=== PATIENT | female | born 1965 | race Caucasian/White ===

== ENCOUNTER 2016-06-12 12:01 | Inpatient (IN) | payer BC ==
[2016-06-12] MEDS: NORMAL SALINE 10 ML SYRINGE FLUSH IVP PRN ×2 (12:25→15:56)
[2016-06-12 12:32] LABS: BASOPHILS # (AUTO) 0.05 10*3/UL; BASOPHILS % (AUTO) 0.3 % (0-1); EOSINOPHILS % (AUTO) 0.3 % (0-8); HEMOGLOBIN 13.7 g/dL (12.0-16.0); IMM GRAN % (AUTO) 0.2 % (0-5); IMM GRAN# (AUTO) 0.03 10*3/UL; LYMPHOCYTES % (AUTO) 16.7 % (10-50); MEAN CORPUSCULAR HGB CONC 34.3 g/dL (33-37); MEAN PLATELET VOLUME 8.9 FL (7.4-12.2); MONOCYTES # (AUTO) 0.79 10*3/UL (0.3-0.8); MONOCYTES % (AUTO) 5.3 % (5-15); NEUTROPHILS # (AUTO) 11.53 10*3/UL; NEUTROPHILS % (AUTO) 77.2 % (50-80); RDW COEFFICIENT OF VARIATION 13.1 % (11.5-14.5); RED BLOOD COUNT 4.73 10^6/uL (4.20-5.40); WHITE BLOOD COUNT 14.94 10^3/uL (4.8-10.8)
[2016-06-12 12:34] LABS: PLATELET MORPHOLOGY COMMENT NORMAL MORPHOLOGY (NORM)
--- NOTE | 2016-06-12 12:39 | EKG ---
[address] [address] Measurements Intervals [place] Rate: 107 P: 58 SC: 140 QRS: 30 QRSD: 98 T: 53 QT: 327 QTc: 389 Interpretive Statements SINUS TACHYCARDIA ABNORMAL RHYTHM ECG No previous ECG available for comparison Electronically Signed On 06-12-16 15:34:58 MST by Isiah Sotomayor MD [email or web address]
[2016-06-12 12:45] LABS: AMYLASE 44 U/L (30-110)
[2016-06-12 12:48] LABS: BILIRUBIN,TOTAL 0.4 mg/dL (0.3-1.2); C-REACTIVE PROTEIN 8.1 mg/dL (0.0-0.9); CALCIUM 8.9 mg/dL (8.7-10.7); TOTAL PROTEIN 6.8 g/dL (6.1-8.0)
--- NOTE | 2016-06-12 13:16 | DI ---
PA /LATERAL CHEST X-RAY, 06/12/2016 12:11 PM : Clinical History: Left-sided pleuritic chest pain. Previous Exam: None at this facility. There is no acute soft tissue or bony abnormality. Heart size is normal. There is no acute infiltrate or effusion. Discoid atelectasis is present in the right middle lobe. Mediastinal structures are nor mal. There are no pulmonary nodules. Reading: Normal chest x-ray.
[2016-06-12 13:53] LABS: BILIRUBIN,URINE NEGATIVE (NEG); CLARITY,URINE CLEAR (CLEAR); GLUCOSE, URINE (UA) NEGATIVE (NEG); LEUKOCYTE ESTERASE ,URINE NEGATIVE (NEG); NITRATE,URINE NEGATIVE (NEG); OCCULT BLOOD,URINE MODERATE (NEG); PROTEIN,URINE NEGATIVE (NEG); UROBILINOGEN,URINE 0.2 EU/dL (0.2)
[2016-06-12 13:55] LABS: URINE SAMPLE TYPE CLEAN CATCH URINE
[2016-06-12 14:07] LABS: SQUAMOUS EPITHELIAL CELL,UR RARE; WBC,URINE 0
--- NOTE | 2016-06-12 14:10 | PDOC ---
General Adult HPI - General Chief Complaint: Abdomen Pain Stated Complaint: L ABD PAIN Date Seen by Provider: 06/12/16 Time Seen by Provider: 12:05 Source: POSITIVE: Patient Exam Limitations: POSITIVE: No limitations Nurse's Notes Reviewed & Considered: Yes - History of Present Illness Initial Comment: The patient is a 50-year-old female who presents to the emergency department with left-sided chest and abdominal pain. She states that last night she had onset of pain in her left chest/left upper abdomen. She states that she felt a lot of pressure as well as increase sharp pain with breathing. She felt like it was difficult to take a deep breath because of pain. Initially last night her pain was across mostly her left chest and even some to the right side of her chest. Now the pain seems more localized to the left anterior lower rib area. She has some degree of pain that is constant however the pain does intensify and become more sharp with breathing. She denies any fevers or chills , nausea or vomiting, urinary symptoms, pain or swelling in her extremities. She denies any prior history of heart disease or blood clots. She does have a history of reflux symptoms however she states this feels different. She denies any history of smoking. She does take oral control pills. She reports a history of hypertension and is on depression medication. The patient is here working in [employer] this week and normally lives in [facility]. Have you received a tetanus shot in the past 10 years?: Unknown - Patient Home Medications Home Medications: Home Medications Control Pill 1 tab PO DAILY 06/12/16 Losartan [Cozaar] 25 mg PO DAILY 06/12/16 Venlafaxine HCl [Effexor] 50 mg PO DAILY 06/12/16 - Patient Allergies Allergies/Adverse Reactions: Allergies Allergy/AdvReac Type Severity Reaction Status Date / Time No Known Allergies Allergy Verified 06/12/16 12:04 Past Medical History - heen HEENT History: Denies History Cardiovascular History: Hypertension Respiratory History: Denies History Gastrointestinal History: Denies History Genitourinary History: Kidney Stones Endocrine History: Denies History Musculoskeletal History: Denies History Prosthesis or Implant: No Neurological History: Migraines Blood Disorders: Denies History Psychiatric History: Depression History of Sexually Transmitted Diseases: No Female Reproductive History: Denies History LMP: 05/20/2016 Cancer History: Denies History In Past Year Been Physically Harmed or Verbally Threatened: No (PER PATIENT) History of MDRO: No History of Other Communicable Diseases: No Tobacco Use: Never Smoker Alcohol Use: Rarely Substance Use Type: None Previous Surgical History: Yes Type / Date of Surgery: BILATERAL CARPAL TUNNEL RELEASE Anesthesia Reactions: No Malignant Hyperthermia: No Family History of Malignant Hyperthermia: No Significant Family History: No pertinent family hx Past Medical History Reviewed: Reviewed - No Changes ROS - Limitations ROS Limitations: No Limitations Constitution: DENIES: Chills, Fever Cardiovascular: DENIES: Heart Racing, Heart Palpitations, Edema Respiratory: REPORTS: Hurts To Breathe, Shortness Of Breath. DENIES: Cough Non Productive, Cough Productive Neurological: REPORTS: Denies Neuro Symptoms Gastrointestinal: DENIES: Nausea, Vomitting, Diarrhea, Black Stools, Bloody Stools Endocrine: REPORTS: Denies Symptoms Musculoskeletal: DENIES: Calf Pain, Lower Extremity Swelling Genitourinary: REPORTS: Denies Symptoms. DENIES: Flank Pain Eyes: REPORTS: Denies Symptoms ENT: REPORTS: Denies Symptoms Skin: DENIES: Rash General Adult Exam - General Appearance General Appearance: POSITIVE: Alert, Cooperative, No Acute Distress - HEENT HEENT: POSITIVE: Head Inspection Nml, Eyes Inspection Nml, Ears Inspection Nml, Pharynx Inspect. Nml, PERRL, EOMI - Neck Neck: POSITIVE: Normal Inspection. NEGATIVE: Lymphadenopathy - Respiratory Respiratory: POSITIVE: No Respiratory Distress, Breath Sounds Normal, Chest Non- Tender - Cardiovascular Cardiovascular: POSITIVE: Regular Rate & Rhythm, No Murmur Peripheral Pulses: Dorsalis-pedis (R): 2+, Dorsalis-pedis (L): 2+ - Abdomen Abdomen: Soft: (All Quadrants), Denies Tenderness: (All Quadrants), No Distention: (All Quadrants) - Back Back: NEGATIVE: CVA Tenderness - Skin Skin: POSITIVE: Normal Color, No Rash - Extremities Extremity: Normal ROM: (All Extremities), Normal Inspection: (All Extremities) - Neurological / Psychological Neurological: POSITIVE: Other (No focal neurologic deficits) General Adult Progress - Results Reviewed by me Xrays/CTs/US Reviewed by me: Yes Discussed with Radiologist: Yes Radiology Findings: Chest x-ray is normal per radiologist. CT scan of the chest PE protocol reveals a pulmonary embolus with small associated infarction in the left lower lobe per radiologist. CT scan of the abdomen and pelvis was unremarkable per radiologist. Lab Results Reviewed: Yes Lab Results:: Laboratory Results 06/12/16 06/12/16 Range/Units 12:28 13:11 WBC 14.94 H (4.8-10.8) 10^3/uL RBC 4.73 (4.20-5.40) 10^6/uL Hgb 13.7 (12.0-16.0) g/dL Hct 40.0 (37.0-47.0) % MCV 84.6 (81-99) FL MCH 29.0 (27-31) PG MCHC 34.3 (33-37) g/dL RDW Std Deviation 39.9 (39-50) fL RDW Coeff of Andrew 13.1 (11.5-14.5) % Plt Count 384 H (140-350) 10*3/uL MPV 8.9 (7.4-12.2) FL Immature Gran % (Auto) 0.2 (0-5) % Neut % (Auto) 77.2 (50-80) % Lymph % (Auto) 16.7 (10-50) % Sheridan % (Auto) 5.3 (5-15) % Eos % (Auto) 0.3 (0-8) % Baso % (Auto) 0.3 (0-1) % Immature Gran # (Auto) 0.03 10*3/UL Neut # (Auto) 11.53 10*3/UL Lymph # (Auto) 2.50 10*3/uL Sheridan # (Auto) 0.79 (0.3-0.8) 10*3/UL Eos # (Auto) 0.04 10*3/UL Baso # (Auto) 0.05 10*3/UL WBC Morphology Comment Normal morphology (NORM) Plt Morphology Comment Normal morphology (NORM) RBC Morph Comment Normal morphology (NORM) D-Dimer 1.78 H (0.00-0.59) mg/L Sodium 136 (135-145) meq/L Potassium 4.0 (3.8-5.2) meq/L Chloride 100 (98-112) meq/L Carbon Dioxide 25 (23-33) meq/L Anion Gap 11 (5-20) BUN 13 (7-22) mg/dL Creatinine 1.0 (0.50-1.20) mg/dL Estimated GFR 59 (>60 ml/min/1.73m(2)) BUN/Creatinine Ratio 13.00 (6-20) Glucose 130 H (78-110) mg/dL Calculated Osmolality 283.0 (267-292) mOsm/kg Calcium 8.9 (8.7-10.7) mg/dL Total Bilirubin 0.4 (0.3-1.2) mg/dL AST 19 (8-39) IU/L ALT 24 (9-52) IU/L Alkaline Phosphatase 79 (38-126) IU/L Troponin I < 0.012 (< 0.040) ng/mL C-Reactive Protein 8.1 H (0.0-0.9) mg/dL Total Protein 6.8 (6.1-8.0) g/dL Albumin 3.9 (3.5-4.8) g/dL Globulin 2.9 (2.50-4.10) g/dL Albumin/Globulin Ratio 1.30 (1.3-2.0) mg/g Amylase 44 (30-110) U/L Lipase 73 (23-300) IU/L Ur Collection Type Clean catch urine Urine Color Yellow Urine Clarity Clear (CLEAR) Urine pH 6.0 (5.0-8.5) Ur Specific [place] 1.015 (1.005-1.030) Urine Protein Negative (NEG) mg/dl Urine Glucose (UA) Negative (NEG) mg/dL Urine Ketones Negative (NEG) Urine Occult Blood Moderate H (NEG) Urine Nitrate Negative (NEG) Urine Bilirubin Negative (NEG) Urine Urobilinogen 0.2 (0.2) EU/dL Ur Leukocyte Esterase Negative (NEG) Urine RBC 8-10 (NONE) /hpf Urine WBC 0 (NONE) Ur Squamous Epith Cells Rare (NONE) Ur Renal Epithelial Cell None (NONE) Urine Crystals None Urine Bacteria None (NONE) Urine Casts None (NONE) Urine Mucus Few (NONE) Urine Trichomonas None (NONE) Urine Yeast None (NONE) Ur Culture Indicated? Culture not set EKG Interpreted/Reviewed By Me:: Yes EKG Interpretation:: POSITIVE: Normal Sinus Rhythm, Normal Intervals, Normal [place], Normal QRS, Normal ST/T, Other (Sinus tachycardia) - Patient's Progress MDM / ED Course: Initial EKG showed normal sinus rhythm with no acute changes. Blood work was significant for an elevated d-dimer and elevated white count. Subsequently a CT scan PE protocol reveals evidence of PE in the left lower lobe with associated mild pulmonary infarct per radiologist. CT scan of the abdomen and pelvis had also been done secondary to the elevated white count and was unremarkable. These findings were discussed with the patient. The patient is hemodynamically stable. Treatment options including traditional treatment with heparin/Lovenox and Coumadin versus newer anticoagulants discussed. Risks also discussed. Patient elected to start eliquis. I did discuss the patient with Dr. Lyons. The patient will be admitted for further monitoring and treatment. Venous Doppler of the lower extremity bilateral was ordered and was also negative. - Consult Counseled: POSITIVE: Patient, RE: Lab Results, RE: Radiology Results, RE: DX Patient Care Time - Estimated PCT Patient Care Time (In Minutes): 50 Vital Signs - Recent Vital Signs Vital Signs: Vital Signs (Last 8 hours) Temp Pulse Pulse Resp BP Pulse Ox 06/12/16 12:37 107 H 06/12/16 12:01 99.4 F 103 H 17 132/75 96 - VS Reviewed Vital Signs Reviewed: Yes Discharge Clinical Impression: Pulmonary embolism Discharge Disposition: Admit to Inpatient Condition: Stable Date Decision to Admit to Inpatient: 06/12/16 Time Decision to Admit to Inpatient: 15:05
[2016-06-12] MEDS ORDERED: Apixaban 5 MG TABLET PO ONE (15:08)
--- NOTE | 2016-06-12 15:10 | DI ---
CT ABDOMEN SCAN WITH IV CONTRAST, 06/12/2016 1:08 PM : Clinical History: Left-sided abdominal pain. Elevated white count. Previous Exam: None at this facility. Scans are performed from the lower lung bases through the liver and kidneys with IV contrast. This is the same bolus of contrast used for the CTA chest scan. There is a small left pleural effusion. The liver has a normal appearance on this study but on the CT angiogram of the chest, the liver show diffuse low density consistent with mild fatty infiltration. The gallbladder is grossly normal. There is no abnormality of the spleen, pancreas, and adrenal gland s. Both kidneys are normal in size, shape, position and contour. There is no hydronephrosis or hydrou reter. No renal or ureteral calculi are present. There are no abnormal retrocrural or periaortic node s. No ascites is present. READING: Fatty infiltration of the liver. The exam is otherwise normal. CT PELVIS SCAN WITH IV CONTRAST, 06/12/2016 1:08 PM: Clinical History: See above. Previous Exam: None at this facility. Scans are performed from just superior to the umbilicus to the symphysis pubis with IV contrast. This is the same bolus of contrast used for the CT scans of the chest and abdomen. Scans through the lower abdomen and pelvis show no masses or abnormal fluid collections. There is no adenopathy. The appendix is normal. The small bowel, terminal ileum, and ileocecal valve are normal. The colon is also normal. There are no hernias. The uterus and both ovaries are normal. READING: Normal CT scan of the pelvis.
--- NOTE | 2016-06-12 15:14 | DI ---
CT ANGIOGRAM OF THE CHEST, 06/12/2016 1:06 PM : Clinical History: Left pleuritic chest pain. Elevated D-dimer test. Previous Exam: None at this facility. Scans are performed from the base of the neck to the lower lung bases following IV administration of 95 mL of Isovue 300 followed by a bolus of 50 mL of normal saline. Proprietary automated bolus tracki ng software was used to verify the timing of the injection. The base of the neck and thoracic inlet are normal. There are no abnormal axillary, supraclavicular, mediastinal, or hilar nodes. The heart is normal. There is no pulmonary arterial hypertension. Fillin g defects are present bilaterally in lower lobe branches indicating pulmonary emboli. Clots are also visualized in the left and right upper lobe branches. There is a small left pleural effusion with a p leural-based defect in the posterior sulcus corresponding to the posterior basal segment consistent w ith a small pulmonary infarct. There are no pulmonary nodules. There is fatty infiltration of the rekha er. READIN. Bilateral pulmonary emboli are present mainly in both lower lobes and to a lesser degree in both upper lobes. There is a small pulmonary infarct in the posterobasal segment of the left lower lobe wi th a small pleural effusion. 2. Fatty infiltration of the liver.
[2016-06-12] MEDS ORDERED: KETOROLAC 15 MG/1 ML VIAL IVP ONE (15:47)
--- NOTE | 2016-06-12 16:05 | DI ---
VENOUS DOPPLER ULTRASOUND OF BOTH LOWER EXTREMITIES, 06/12/2016 3:05 PM: Clinical History: Pulmonary embolism. Previous Exam: None at this facility. Technique: 2D real-time imaging is supplemented with color Doppler ultrasound. Compression and augmen tation maneuvers were performed. The deep venous system from the groin to the popliteal fossa for both legs is normal. The greater sap henous veins are also normal. Reading: Negative venous Doppler ultrasound of both lower extremities for deep vein thrombosis.
[2016-06-12] MEDS ORDERED: NORMAL SALINE 10 ML SYRINGE FLUSH IVP PRN (16:07)
[2016-06-12] MEDS ORDERED: LIDOCAINE W/ SODIUM BICARB 0.5 ML SYR SUBD PRN (16:07)
[2016-06-12] MEDS ORDERED: ONDANSETRON 4 MG/2 ML VIAL IVP PRN (16:07)
[2016-06-12] MEDS ORDERED: oxyCODONE-ACETAMINOPHEN 5-325 TAB PO PRN (16:39)
--- NOTE | 2016-06-12 16:49 | PDOC ---
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 In the ER she received a dose of Toradol will help with her pain on deep inspiration and also CT scan of the chest revealed bilateral pulmonary emboli both upper and lower lobes troponins were negative and bilateral lower ultrasounds were also negative. Denies any prior history of coronary artery disease does have a history of reflux disease for she takes an occasional Zantac for she also takes Effexor for for her depression and Cozaar for hypertension At present she is denying chest pain and is feeling much comfortable Past Medical History Medical History: Hypertension, depression, on control pills Tobacco Use: Never Smoker Substance Use Type: None Alcohol Use: None Medication / Allergies Home Medications: Home Medications Medication Instructions Recorded Confirmed Type Control Pill 1 tab PO DAILY 06/12/16 06/12/16 History Losartan [Cozaar] 25 mg PO DAILY 06/12/16 06/12/16 History Venlafaxine HCl [Effexor] 50 mg PO DAILY 06/12/16 06/12/16 History Allergies/Adverse Reactions: Allergies Allergy/AdvReac Type Severity Reaction Status Date / Time No Known Allergies Allergy Verified 06/12/16 12:04 Review of Systems - Review of Systems All Systems: Reviewed & No Additional Complaints Except as Stated - Respiratory Respiratory: DENIES: Negative System Review, Cough, Sputum, Dyspnea At Rest, Dyspnea with Exertion, Pleuritic Pain, Hemoptysis, Wheezing, Other, See HPI - Cardiovascular Cardiovascular: DENIES: Negative System Review, Chest Pain, Edema, Syncope, Palpitations, Orthopnea, Paroxysmal Nocturnal Dyspnea, Other, See HPI - Gastrointestinal Gastrointestinal / Abdominal: DENIES: Negative System Review, Nausea, Vomiting, Diarrhea, Constipation, Abdominal Pain, Bloody Stool, Poor Appetite, Heartburn, Regurgitation, Bloating, Lactose Intolerance, Melena, Bright Red Blood Per Rectum, Other, See HPI - Genitourinary Genitourinary: DENIES: Negative System Review, Pain, Burning, Hematuria, Incontinence, Urgency, Hesitant Stream, Decreased Stream, Nocutria, Discharge, Sexual Dyfunction, Other, See HPI - Musculoskeletal Musculoskeletal: DENIES: Negative System Review, Back Pain, Neck Pain, Swelling , Calf Pain, Muscle Pain, Cramping, Joint Pain - Hands, Joint Pain - Elbows, Joint Pain - Shoulders, Joint Pain - Hips, Joint Pain - Knees, Joint Pain - Feet , AM Stiffness, Other, See HPI Exam - Vitals Vital Signs: Vital Signs Temperature 98.4 F Temperature Source Temporal Artery Scan Pulse Rate [Pulse Oximeter] 105 Respiratory Rate 18 Blood Pressure [Left Arm] 150/87 Pulse Ox 96 Oxygen Delivery Method Room Air Height 5 ft 7 in Weight 114.895 kg - General General Appearance: POSITIVE: No Acute Distress, Cooperative - Head Head Exam: POSITIVE: Normal Inspection, Normocephalic, Atraumatic - Eye Eye Exam: POSITIVE: Normal Appearance, PERRL, EOMI - Respiratory Respiratory Exam: POSITIVE: Clear to Auscultation - Bilaterally, Breathing Non Labored, Normal To Percussion, Rales - Cardiovascular Cardiovascular Exam: POSITIVE: RRR, No Murmur, No Clicks, No Gallops, No Rubs - GI/Abdominal GI/Abdominal Exam: POSITIVE: Normal Bowel Sounds, Non Tender, Non Distended, Soft - Extremities Extremities Exam: POSITIVE: Normal Capillary Refill, No Clubbing Present, No Edema Present, No Cyanosis Present Results - Labs CBC and BMP: 06/12/16 12:28 06/12/16 12:28 Assessment and Plan - Patient Problems (1) Pulmonary embolus Current Visit: Yes Status: Acute Comment: We will start Eliquis 10 mg by mouth twice a day I recommended the patient stop her control pills and go to another form after she follows up with her primary care physician we are not doing an echo there is no blood pressure issues or troponin leaks and the other reason why is because we don't have master motorcycle technician that can do echoes this week at our facility. Patient understands (2) Hypertension Current Visit: Yes Status: Acute Comment: Continue losartan will start tomorrow she really had her dose today (3) Depression Current Visit: Yes Status: Chronic Comment: Continue her Effexor
[2016-06-12] MEDS: Sodium Chloride 0.9% 1,000 ML PRIMARY IV SCH (17:00)
[2016-06-12] MEDS ORDERED: VENLAFAXINE XR 75 MG CAP PO SCH (21:00)
[2016-06-12] MEDS ORDERED: Apixaban 5 MG TABLET PO SCH (21:00)
[2016-06-13] MEDS: Sodium Chloride 0.9% 1,000 ML PRIMARY IV SCH (00:35)
[2016-06-13 06:44] LABS: ASPARTATE AMINO TRANSFERASE 18 IU/L (8-39); BILIRUBIN,TOTAL 0.5 mg/dL (0.3-1.2); BLOOD UREA NITROGEN 12 mg/dL (7-22); CALCIUM 8.6 mg/dL (8.7-10.7); CHLORIDE 108 meq/L (98-112); CREATININE 0.8 mg/dL (0.50-1.20); EST GLOMERULAR FILTRATION > 60 (>60 ml/min/1.73m(2)); GLUCOSE 93 mg/dL (78-110); SODIUM 139 meq/L (135-145); TOTAL PROTEIN 6.8 g/dL (6.1-8.0)
[2016-06-13] MEDS ORDERED: LOSARTAN 25 MG TABLET PO SCH (07:00)
[2016-06-13 08:11] VITALS: RESP 16; TEMP 97.2
[2016-06-13] MEDS ORDERED: Apixaban 5 MG TABLET PO SCH (09:00)
[2016-06-13] MEDS ORDERED: VENLAFAXINE HCL 50 MG PO SCH (09:00)
--- NOTE | 2016-06-13 10:46 | PDOC(PROG) ---
Date and Time of Service: 06/13/2016 10:48 AM Interval History: Subjective Patient feels better, she came into the hospital with history of pain in the chest started the night before felt across the chest lasted for few hours then yesterday morning the pain was more on the side of left side worse with deep breathing. Today she is denying complaint. There is no chest pain, no shortness of breath. She did not have shortness of breath also yesterday. There was no history of leg swelling or leg pain. She lives in [place], she came in here last Thursday, she drove for about 5 hours she did say she stopped in [place]. The longest drive was back in March maybe 7 hours. There is no family history of DVT. There is no personal history of cancer. Today she is denying symptoms as I said. She is on the pill , and she knows that she need to discontinue that. Objective : Data - Labs CBC and BMP: 06/12/16 12:28 06/13/16 06:05 Labs - Last 24 Hours: Laboratory Results 06/13/16 Range/Units 06:05 Sodium 139 (135-145) meq/L Potassium 4.0 (3.8-5.2) meq/L Chloride 108 (98-112) meq/L Carbon Dioxide 23 (23-33) meq/L Anion Gap 8 (5-20) BUN 12 (7-22) mg/dL Creatinine 0.8 (0.50-1.20) mg/dL Estimated GFR > 60 (>60 ml/min/1.73m(2)) BUN/Creatinine Ratio 15.00 (6-20) Glucose 93 (78-110) mg/dL Calculated Osmolality 287.0 (267-292) mOsm/kg Calcium 8.6 L (8.7-10.7) mg/dL Total Bilirubin 0.5 (0.3-1.2) mg/dL AST 18 (8-39) IU/L ALT 24 (9-52) IU/L Alkaline Phosphatase 68 (38-126) IU/L Total Protein 6.8 (6.1-8.0) g/dL Albumin 3.5 (3.5-4.8) g/dL Globulin 3.3 (2.50-4.10) g/dL Albumin/Globulin Ratio 1.00 L (1.3-2.0) mg/g Objective : Exam - General General Appearance: No Acute Distress, Cooperative, Obese - Head Head Exam: Normal Inspection, Atraumatic - Eye Eye Exam: Normal Appearance - ENT ENT Exam: Normal Exam - Neck Neck Exam: Normal Inspection - Respiratory Respiratory Exam: Clear to Auscultation - Bilaterally - Cardiovascular Cardiovascular Exam: RRR - GI/Abdominal GI/Abdominal Exam: Normal Bowel Sounds, Non Tender, Non Distended, Soft - Rectal Rectal Exam: Deferred - External Exam: Deferred Exam: Deferred - Extremities Extremities Exam: Normal Inspection - Back Back Exam: Normal Inspection - Neurological Neurological Exam: Alert, Oriented x 3, CN II-XII Intact, Moves All Extremities Equally - Psychiatric Psychiatric Exam: Normal Affect - Integumentary Integumentary Exam: Normal Color Assessment and Plan - Patient Problems (1) Pulmonary embolus Status: Acute Comment: She is on eliquis, she wants to go home. I did tell her that we can treat PE as an outpatient. She is a candidate for it, she is hemodynamically stable and blood pressure is fine, she is not on oxygen, her pain is resolved doesn't need narcotics. A troponin when she came in was negative. She is with it, her heart rate is less than 110. She is not in respiratory distress. No history of bleeding. No comorbid conditions. There is no DVT. All puts her at low risk category and her simplified pulmonary embolism severity index is 0.
--- NOTE | 2016-06-13 13:55 | DCSUMMARY ---
Hospitalization Summary Admit Date: 06/12/16 Discharge Date: 06/13/16 Hospital Course: Discharge diagnoses 1. Bilateral pulmonary emboli present mainly in the both lower lobes and to lesser degree in both upper lobes. 2. Small pulmonary infarct in the posterior basal segment of the left lower lobe with a small pleural effusion 3. History of hypertension 4. Obesity 5. 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 She said the pain started all of a sudden the night before at admission felt across the chest lasted 4-6 hours. The next day the pain was more on the left side worse with taking deep breath and because of that came into the ER. She did have a CT of the chest which showed bilateral PE and hence the admission. She was admitted by Dr. Lyons please see his note. Patient had an ultrasound of the legs which was negative. Patient was started on eliquis. I saw the patient the next day she denied symptoms there was no chest pain, no shortness of breath. She was comfortable. She was not on oxygen. Exam was unremarkable. Her heart rate was less than 110. She wanted to go home. We calculated her risk of to be low and her simplified pulmonary embolism severity index was 0 so this could be treated as an outpatient. I did tell her to follow-up with her primary as an outpatient. She said a coworker will drive her home. Laboratory Results 06/12/16 06/12/16 06/12/16 Range/Units 12:12 12:28 13:11 WBC 14.94 H (4.8-10.8) 10^3/uL RBC 4.73 (4.20-5.40) 10^6/uL Hgb 13.7 (12.0-16.0) g/dL Hct 40.0 (37.0-47.0) % MCV 84.6 (81-99) FL MCH 29.0 (27-31) PG MCHC 34.3 (33-37) g/dL RDW Std Deviation 39.9 (39-50) fL RDW Coeff of Andrew 13.1 (11.5-14.5) % Plt Count 384 H (140-350) 10*3/uL MPV 8.9 (7.4-12.2) FL Immature Gran % (Auto) 0.2 (0-5) % Neut % (Auto) 77.2 (50-80) % Lymph % (Auto) 16.7 (10-50) % Rice % (Auto) 5.3 (5-15) % Eos % (Auto) 0.3 (0-8) % Baso % (Auto) 0.3 (0-1) % Immature Gran # (Auto) 0.03 10*3/UL Neut # (Auto) 11.53 10*3/UL Lymph # (Auto) 2.50 10*3/uL Rice # (Auto) 0.79 (0.3-0.8) 10*3/UL Eos # (Auto) 0.04 10*3/UL Baso # (Auto) 0.05 10*3/UL WBC Morphology Comment Normal morphology (NORM) Plt Morphology Comment Normal morphology (NORM) RBC Morph Comment Normal morphology (NORM) D-Dimer 1.78 H (0.00-0.59) mg/L Sodium 136 (135-145) meq/L Potassium 4.0 (3.8-5.2) meq/L Chloride 100 (98-112) meq/L Carbon Dioxide 25 (23-33) meq/L Anion Gap 11 (5-20) BUN 13 (7-22) mg/dL Creatinine 1.0 (0.50-1.20) mg/dL Estimated GFR 59 (>60 ml/min/1.73m(2)) BUN/Creatinine Ratio 13.00 (6-20) Glucose 130 H (78-110) mg/dL Calculated Osmolality 283.0 (267-292) mOsm/kg Calcium 8.9 (8.7-10.7) mg/dL Total Bilirubin 0.4 (0.3-1.2) mg/dL AST 19 (8-39) IU/L ALT 24 (9-52) IU/L Alkaline Phosphatase 79 (38-126) IU/L Troponin I < 0.012 (< 0.040) ng/mL C-Reactive Protein 8.1 H (0.0-0.9) mg/dL Total Protein 6.8 (6.1-8.0) g/dL Albumin 3.9 (3.5-4.8) g/dL Globulin 2.9 (2.50-4.10) g/dL Albumin/Globulin Ratio 1.30 (1.3-2.0) mg/g Amylase 44 (30-110) U/L Lipase 73 (23-300) IU/L Serum HCG, Qual Negative Ur Collection Type Clean catch urine Urine Color Yellow Urine Clarity Clear (CLEAR) Urine pH 6.0 (5.0-8.5) Ur Specific [place] 1.015 (1.005-1.030) Urine Protein Negative (NEG) mg/dl Urine Glucose (UA) Negative (NEG) mg/dL Urine Ketones Negative (NEG) Urine Occult Blood Moderate H (NEG) Urine Nitrate Negative (NEG) Urine Bilirubin Negative (NEG) Urine Urobilinogen 0.2 (0.2) EU/dL Ur Leukocyte Esterase Negative (NEG) Urine RBC 8-10 (NONE) /hpf Urine WBC 0 (NONE) Ur Squamous Epith Cells Rare (NONE) Ur Renal Epithelial Cell None (NONE) Urine Crystals None Urine Bacteria None (NONE) Urine Casts None (NONE) Urine Mucus Few (NONE) Urine Trichomonas None (NONE) Urine Yeast None (NONE) Ur Culture Indicated? Culture not set 06/13/16 Range/Units 06:05 WBC (4.8-10.8) 10^3/uL RBC (4.20-5.40) 10^6/uL Hgb (12.0-16.0) g/dL Hct (37.0-47.0) % MCV (81-99) FL MCH (27-31) PG MCHC (33-37) g/dL RDW Std Deviation (39-50) fL RDW Coeff of Andrew (11.5-14.5) % Plt Count (140-350) 10*3/uL MPV (7.4-12.2) FL Immature Gran % (Auto) (0-5) % Neut % (Auto) (50-80) % Lymph % (Auto) (10-50) % Rice % (Auto) (5-15) % Eos % (Auto) (0-8) % Baso % (Auto) (0-1) % Immature Gran # (Auto) 10*3/UL Neut # (Auto) 10*3/UL Lymph # (Auto) 10*3/uL Rice # (Auto) (0.3-0.8) 10*3/UL Eos # (Auto) 10*3/UL Baso # (Auto) 10*3/UL WBC Morphology Comment (NORM) Plt Morphology Comment (NORM) RBC Morph Comment (NORM) D-Dimer (0.00-0.59) mg/L Sodium 139 (135-145) meq/L Potassium 4.0 (3.8-5.2) meq/L Chloride 108 (98-112) meq/L Carbon Dioxide 23 (23-33) meq/L Anion Gap 8 (5-20) BUN 12 (7-22) mg/dL Creatinine 0.8 (0.50-1.20) mg/dL Estimated GFR > 60 (>60 ml/min/1.73m(2)) BUN/Creatinine Ratio 15.00 (6-20) Glucose 93 (78-110) mg/dL Calculated Osmolality 287.0 (267-292) mOsm/kg Calcium 8.6 L (8.7-10.7) mg/dL Total Bilirubin 0.5 (0.3-1.2) mg/dL AST 18 (8-39) IU/L ALT 24 (9-52) IU/L Alkaline Phosphatase 68 (38-126) IU/L Troponin I (< 0.040) ng/mL C-Reactive Protein (0.0-0.9) mg/dL Total Protein 6.8 (6.1-8.0) g/dL Albumin 3.5 (3.5-4.8) g/dL Globulin 3.3 (2.50-4.10) g/dL Albumin/Globulin Ratio 1.00 L (1.3-2.0) mg/g Amylase (30-110) U/L Lipase (23-300) IU/L Serum HCG, Qual Ur Collection Type Urine Color Urine Clarity (CLEAR) Urine pH (5.0-8.5) Ur Specific [place] (1.005-1.030) Urine Protein (NEG) mg/dl Urine Glucose (UA) (NEG) mg/dL Urine Ketones (NEG) Urine Occult Blood (NEG) Urine Nitrate (NEG) Urine Bilirubin (NEG) Urine Urobilinogen (0.2) EU/dL Ur Leukocyte Esterase (NEG) Urine RBC (NONE) /hpf Urine WBC (NONE) Ur Squamous Epith Cells (NONE) Ur Renal Epithelial Cell (NONE) Urine Crystals Urine Bacteria (NONE) Urine Casts (NONE) Urine Mucus (NONE) Urine Trichomonas (NONE) Urine Yeast (NONE) Ur Culture Indicated? Discharge instruction Diet regular Activity as tolerated Medications Home Medications RX: Losartan [Cozaar] 25 mg PO DAILY 06/12/16 [History Confirmed 06/12/16] RX: Venlafaxine HCl [Venlafaxine HCl ER] 225 mg PO BEDTIME 06/12/16 [History Confirmed 06/12/16] Apixaban [Eliquis] 10 mg PO BID #70 tablet 06/13/16 [Rx] Follow-up with her primary in 1-2 weeks Condition at discharge was stable for discharge Exam - Vitals Vital Signs: Vital Signs Temperature 97.2 F Temperature Source Temporal Artery Scan Pulse Rate [Apical] 84 Pulse Rate [Pulse Oximeter] 103 Pulse Rate 88 Respiratory Rate 16 Blood Pressure [Right Arm] 166/83 Blood Pressure [Left Arm] 150/87 Pulse Ox 92 Oxygen Delivery Method Room Air Height 5 ft 7 in Weight 253 lb 4.8 oz Patient Problems - Patient Problem List (1) Pulmonary embolus Status: Acute
== END 2016-06-13 11:23 | disposition home or self-care (01) | DRG 176 ==
LOC: ER 12:01 → EDSEX 12:01 → MED/SURG 15:10
PROVIDERS: ADMIT Internal Medicine; ATTEND Internal Medicine
DX: I26.99 Other pulmonary embolism without acute cor pulmonale (principal); I10 Essential (primary) hypertension; E66.9 Obesity, unspecified; F32.9 Major depressive disorder, single episode, unspecified
CPT/HCPCS: 36415; 71020; 71275; 74177; 80053; 81001; 81003; 82150; 83690; 84484; 84703; 85025; 85379; 86140; 93005; 93010; 93970; 94761; 99284; J1885; J7030